=== PATIENT | female | born 1995 | race Caucasian/White ===

== ENCOUNTER 2018-07-19 09:32 | Emergency (ER) | payer BC ==
[2018-07-19 09:42] VITALS: TEMP 98.6
[2018-07-19] MEDS ORDERED: SODIUM CHLORIDE 0.9% 1,000 ML IV STA (10:12)
[2018-07-19] MEDS ORDERED: KETOROLAC 30 MG/ML 1 ML VIAL IVP STA (10:12)
[2018-07-19] MEDS ORDERED: METOCLOPRAMIDE 5 MG/ML 2 ML VIAL IVP STA (10:12)
[2018-07-19] MEDS ORDERED: diphenhydrAMINE 50 MG/ML 1 ML VIAL IVP STA (10:12)
--- NOTE | 2018-07-19 10:18 | ED ---
Headache HPI - General Chief Complaint: Headache Stated Complaint: Migraines Time Seen by Provider: 07/19/18 09:48 Source: RN notes reviewed, old records reviewed Mode of arrival: ambulatory Limitations: no limitations - History of Present Illness Initial Comments: Patient is a 22-year-old female presents restaurant today with a migraine-like headache. She said having migraine headaches for the past week. She has a history of migraines but hasn't had some quite a few years. Patient states that she's had no recent fevers or chills. 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 Patient states that she has no cough or congestion. Her headache is worse with bright lights. She was able to eat breakfast today complains of some mild nausea. She otherwise appears well. - Related Data Previous Rx's Medication Instructions Recorded Ondansetron Odt [Zofran Odt] 4 mg PO Q8HR PRN #12 tab 07/19/18 Allergies Allergy/AdvReac Type Severity Reaction Status Date / Time No Known Allergies Allergy Verified 07/19/18 10:20 Review of Systems ROS Statement: Those systems with pertinent positive or pertinent negative responses have been documented in the HPI. ROS Other: All systems not noted in ROS Statement are negative. Past Medical History Additional Past Medical History / Comment(s): migraines History of Any Multi-Drug Resistant Organisms: None Reported Past Surgical History: No Surgical Hx Reported Past Psychological History: ADD/ADHD, Depression Smoking Status: Current every day smoker Past Alcohol Use History: None Reported Past Drug Use History: None Reported General Exam - General Exam Comments Initial Comments: This is a 22-year-old female. Alert and oriented. No significant distress. Limitations: no limitations General appearance: alert, in no apparent distress Head exam: Present: atraumatic, normocephalic, normal inspection Eye exam: Present: normal appearance, PERRL, EOMI. Absent: scleral icterus, conjunctival injection, periorbital swelling ENT exam: Present: normal exam, mucous membranes moist Neck exam: Present: normal inspection. Absent: tenderness, meningismus, lymphadenopathy Respiratory exam: Present: normal lung sounds bilaterally. Absent: respiratory distress, wheezes, rales, rhonchi, stridor Cardiovascular Exam: Present: regular rate, normal rhythm, normal heart sounds. Absent: systolic murmur, diastolic murmur, rubs, gallop, clicks GI/Abdominal exam: Present: soft, normal bowel sounds. Absent: distended, tenderness, guarding, rebound, rigid Extremities exam: Present: normal inspection, full ROM, normal capillary refill. Absent: tenderness, pedal edema, joint swelling, calf tenderness Back exam: Present: normal inspection, full ROM Neurological exam: Present: alert, oriented X3, CN II-XII intact Expanded Patient oriented to: Present: person, place, time Speech: Present: fluid speech Cranial nerves: EOM's Intact: Normal Cerebellar function: Finger to Nose: Normal Upper motor neuron: Pronator Drift: Normal Sensory exam: Upper Extremity Light Touch: Normal, Lower Extremity Light Touch: Normal Motor strength exam: RUE: 5, LUE: 5, RLE: 5, LLE: 5 Eye Response: (4) open spontaneously Motor Response: (6) obeys commands Verbal Response: (5) oriented Brea Total: 15 Psychiatric exam: Present: normal affect, normal mood Skin exam: Present: warm, dry, intact, normal color. Absent: rash Course Vital Signs 07/19/18 09:39 Temperature 98.6 F Pulse Rate 81 Respiratory 20 Rate Blood Pressure 129/80 O2 Sat by Pulse 100 Oximetry - Reevaluation(s) Reevaluation #1: 07/19/18 11:46 She was reevaluated states her headache is a 0 out of 10. She felt better after she was able to take a nap from the medications. Would like to be discharged home. Medical Decision Making - Medical Decision Making 22-year-old female presents emergency with headache, complains of migraine-like symptoms for the past week. Patient was given migraine cocktail, fluids. Chest tension an incidental chest pain musculature in nature from an accident at work. Patient's EKG was reviewed and shows no significant changes. Patient's feeling better after migraine cocktail. Discussed that she needs to rest, remain hydrated. Postop with PCP. All questions answered return parameters were discussed. 07/19/18 11:41 EKG shows normal sinus rhythm nonspecific ST and amount. Abnormal EKG. Ventricular rate of 63 bpm. IL interval is 186 most seconds. She church 82 ms. QT QTc is 422/431 ms. Disposition Clinical Impression: Migraine Disposition: HOME SELF-CARE Condition: Good Instructions (If sedation given, give patient instructions): Migraine Headache (ED) Additional Instructions: Patient is to follow-up with your primary care physician. to take Motrin or Tylenol for the headaches or further pain, he is a nausea medicine as needed. Return to emergency department if any alarming signs or symptoms occur. Prescriptions: Ondansetron Odt [Zofran Odt] 4 mg PO Q8HR PRN #12 tab PRN Reason: Nausea Is patient prescribed a controlled substance at d/c from ED?: No Referrals: Carson Campuzano DO [Primary Care Provider] - 1-2 days
[2018-07-19 11:49] VITALS: BP 107/70; PULSE 72; RESP 18
== END 2018-07-19 11:53 | disposition home or self-care (01) ==
LOC: EC 09:32
DX: G43.909 Migraine, unspecified, not intractable, without status migrainosus (principal); R94.31 Abnormal electrocardiogram [ECG] [EKG]; R07.9 Chest pain, unspecified; F17.200 Nicotine dependence, unspecified, uncomplicated
CPT/HCPCS: 99284; 96374; 96375 ×2; 96361; 93005; J1200; J2765; J1885

== ENCOUNTER → 2021-09-29 | Outpatient (CLI) | payer BC, OTHER | END | disposition home or self-care (01) | LOC: CPPFTMAIN 11:14 | PROVIDERS: ATTEND Family Medicine | DX: J45.998 Other asthma (principal) | CPT/HCPCS: 94060; 94726; 94729 ==